=== PATIENT | female | born 1965 | race Caucasian/White ===

== ENCOUNTER 2018-01-30 17:36 | Emergency (ER) | END 2018-01-30 22:06 | disposition home or self-care (01) ==

== ENCOUNTER 2018-06-19 08:11 | Day surgery (SDC) | payer OTHER ==
[~2018-06-19] VITALS: Ht 144.8 cm; Wt 74.7 kg
[~2018-06-19 08:11] MED LIST: IBUP-1542 PO; METO-53; ONDA4TAB14 PO
[2018-06-19 09:15] VITALS: Ht 144.8 cm; Wt 74.7 kg
[2018-06-19] MEDS ORDERED: pioglitazone (09:22)
[2018-06-19] MEDS ORDERED: glimepride (09:22)
[2018-06-19] MEDS ORDERED: metoprolol (09:22)
[2018-06-19] MEDS ORDERED: ventolin HFA (09:22)
[2018-06-19 10:00] VITALS: BP 166/78; PULSE 78; RESP 18
--- NOTE | 2018-06-19 10:10 | PREAC ---
Date/Time of Note Date/Time of Note DATE: 06/19/18 TIME: 10:07 Anesthesia Eval and Record Evaluation Time Pre-Procedure Interview DATE: 06/19/18 TIME: 10:07 Age 52 Sex female NPO: 8 hrs Preoperative diagnosis screening Planned procedure colonoscopy Past Medical History Past Medical History: Includes Cardio: HTN, [place], CAD Endo: Diabetes Pulm: Asthma GI: Obesity Surgery & Anesthesia Issues No known issue Meds Anticoagulation: No Beta Micah within 24 hr: Yes Reason Beta Micah not given: Bradycarida, Hypotension Active Scripts Ondansetron (Ondansetron Odt) 4 Mg Tab.rapdis, 4 MG PO Q6H PRN for NAUSEA AND/OR VOMITING, #10 TAB Prov:RAGHAV JUNIOR MD 01/30/18 Ibuprofen* (Motrin*) 600 Mg Tab, 600 MG PO Q6H PRN for PAIN AND OR ELEVATED TEMP, #30 TAB Prov:RAGHAV JUNIOR MD 01/30/18 Reported Medications [ventolin HFA] No Conflict Check 06/19/18 [pioglitazone] No Conflict Check 06/19/18 [glimepride] No Conflict Check 06/19/18 [metoprolol] No Conflict Check 06/19/18 Metoprolol (Lopressor) 50 Mg Tablet 07/14/09 Meds reviewed: Yes Allergies Coded Allergies: No Known Drug Allergies (Verified Allergy, Mild, 07/14/09) Allergies Reviewed: Yes Labs/Studies Labs Reviewed: Reviewed by anesthesiologist test: N/A Pre-procedure Exam Airway: Adequate mouth opening, Adequate thyromental dist Mallampati: Mallampati II Teeth: Normal Lung: Normal Heart: Normal ASA Physical Status ASA physical status: 3 Emergency: None Planned Anesthetic General/MAC: Mask Planned Pain Management Parenteral pain med Pre-operative Attestations Prior to commencing anesthesia and surgery, the patient was re-evaluated, there was verification of: *The patient's identity *The results of appropriate recent lab work and preoperative vital signs *The above evaluation not changing prior to induction *Anesthetic plan, risk benefits, alternative and complications discussed with patient/family; questions answered; patient/family understands, accepts and wishes to proceed. [employer] used LUIS SALMON MD Jun 19, 2018 10:10
[2018-06-19] MEDS ORDERED: FENTAnyl 50 MCG/ML VIAL ONE (10:12)
[2018-06-19] MEDS ORDERED: MIDAZOLAM 1 MG/ML 2 ML INJ ONE (10:12)
[2018-06-19] MEDS ORDERED: HYDROmorphONE 1 MG/5 ML IV SYRINGE IV PRN (10:30)
[2018-06-19] MEDS ORDERED: ONDANSETRON 4 MG INJ IV PRN (10:30)
--- NOTE | 2018-06-19 10:38 | PAC ---
Date/Time of Note Date/Time of Note DATE: 06/19/18 TIME: 10:38 Post-Anesthesia Notes Post-Anesthesia Note Activity: WNL Respiratory function: WNL Cardiovascular function: WNL Mental status: Baseline Pain reasonably controlled: Yes Hydration appropriate: Yes Nausea/Vomiting absent: Yes Comments BP: 123/60 HR: 74 RR: 15 T: 98 SaO2: 99% LUIS SALMON MD Jun 19, 2018 10:38
[2018-06-19 10:56] VITALS: BP 134/63; PULSE 75; RESP 16
== END 2018-06-19 11:51 | disposition home or self-care (01) ==
LOC: GIL 08:11
PROVIDERS: ATTEND Internal Medicine Gastroenterology
DX: Z12.11 Encounter for screening for malignant neoplasm of colon (principal); D12.0 Benign neoplasm of cecum; K64.8 Other hemorrhoids; I10 Essential (primary) hypertension; E11.9 Type 2 diabetes mellitus without complications; I25.10 Atherosclerotic heart disease of native coronary artery without angina pectoris; I25.2 Old myocardial infarction; J45.909 Unspecified asthma, uncomplicated
CPT/HCPCS: 45380; 88305; J2250; J3010; Z7610